=== PATIENT | female | born 1950 | race Caucasian/White ===

== ENCOUNTER 2019-09-26 10:47 | Emergency (ER) | payer MEDICARE, OTHER ==
[2019-09-26 10:55] VITALS: BP 112/85
--- NOTE | 2019-09-26 11:23 | ED Physician Documentation ---
PD HPI UPPER EXT INJURY - Stated complaint Stated Complaint: LT INDEX LAC - Chief complaint Chief Complaint: Ext Problem - History obtained from History obtained from: Patient - History of Present Illness Location: Left, Finger (index) Type of injury: Laceration (cut with knife as she was trying to cut something. Flap lac that bled well initially, then stopped. It started bleeding again this morning when got up and touched finger on something.) Where injury occurred: Home Timing - onset: Last night Timing - details: Abrupt onset, Still present Associated symptoms: No: Weakness, Numbness Similar symptoms before: Has not had sx before Review of Systems Skin: reports: Laceration (s). denies: Abrasion (s) Neurologic: denies: Focal weakness, Numbness, Near syncope PD PAST MEDICAL HISTORY - Past Medical History Past Medical History: No - Past Surgical History HEENT: Tonsil/Adenoidectomy - Allergies Allergies/Adverse Reactions: Allergies Allergy/AdvReac Type Severity Reaction Status Date / Time No Known Drug Allergies Allergy Verified 09/26/19 10:55 - Social History Does the pt smoke?: No Smoking Status: Never smoker Does the pt drink ETOH?: Yes Does the pt have substance abuse?: No - Immunizations Immunizations are current?: Yes PD ED PE NORMAL - Vitals Vital signs reviewed: Yes - General General: Alert and oriented X 3, No acute distress, Well developed/nourished - Derm Derm: Normal color, Warm and dry - Extremities Extremities: Other (left index finger tip with flap lac that is still attached at about 145 degrees of skin, with pink color in center of flap. Looks viable. No FB. Slight bleeding with exam of the lac. It is at edge of nail but does not involve nail/bed at all. ) Results - Vitals Vitals: Vital Signs - 24 hr 09/26/19 10:49 Temperature 36.6 C Heart Rate 74 Respiratory 14 Rate Blood Pressure 112/85 H O2 Saturation 99 Oxygen O2 Source Room air Procedures - Laceration (location) left index finger tip Length in cm: 1.2 Wound type: Flap, Into subcut fat, Clean Neurovascular status: Sensory intact, Motor intact Tendon involvement: Other (not applicable) Anesthesia: Lidocaine 1% with epi Wound Preparation: Irrigated copiously NS, Wound explored, To the base, Wound edges modified. No: FB identified Skin layer closure: Nylon, Running, Size #-0 - enter number (5), Sutures - enter # (6) Other: Patient tolerated well, No complications, Tetanus UTD Complexity: Simple Departure - Departure Disposition: 01 Home, Self Care Clinical Impression: Finger laceration Qualifiers: Encounter type: initial encounter Finger: index finger Damage to nail status: without damage Foreign body presence: without foreign body Laterality: left Qualified Code(s): S61.211A - Laceration without foreign body of left index finger without damage to nail, initial encounter Condition: Stable Record reviewed to determine appropriate education?: Yes Instructions: ED Laceration Hand Follow-Up: Mateus Dee MD [Primary Care Provider] - Comments: It is okay to wash and shower. Clean off the wound twice a day with soap and water, or peroxide and water. Apply some antibiotic ointment to it to keep it moist. Also to watch for signs of infection such as purulence, redness or increasing pain. Return to your primary care or the ER at the specified time for suture removal. Suture removal about 10 days. Tylenol or ibuprofen if needed for pains. Discharge Date/Time: 09/26/19 11:56
== END 2019-09-26 11:56 | disposition home or self-care (01) ==
LOC: ED 10:47
DX: S61.211A Laceration without foreign body of left index finger without damage to nail, initial encounter (principal); W26.0XXA Contact with knife, initial encounter; Y93.89 Activity, other specified; Y92.009 Unspecified place in unspecified non-institutional (private) residence as the place of occurrence of the external cause
CPT/HCPCS: 12001; 99282

== ENCOUNTER 2021-09-10 08:00 | Outpatient (CLI) | payer MEDICARE ==
--- NOTE | 2021-09-10 17:03 | XRAY Report ---
PROCEDURE: Toe(s) LT INDICATIONS: PAIN IN LEFT TOE TECHNIQUE: 3 views of the left fourth toe acquired. COMPARISON: None. FINDINGS: Bones: No displaced fractures or dislocations. There is a curvilinear lucency within the dorsal aspe ct of the base of the fourth middle phalanx which may represent a nondisplaced fracture. There is mil d to moderate degeneration of the interphalangeal joints. No suspicious bony lesions. Soft tissues: No suspicious soft tissue densities. IMPRESSION: 1. No displaced fracture or dislocation. 2. Lucency within the base of the fourth middle phalanx dorsally may represent a nondisplaced fractur e. Reviewed by: Den Quinn MD on 09/10/2021 5:02 PM PST Approved by: Den Quinn MD on 09/10/2021 5:02 PM PST Station ID: [id number]
== END 2021-09-10 23:59 | disposition home or self-care (01) ==
LOC: DI.S 08:00
PROVIDERS: ATTEND Physician Assistant
DX: M79.675 Pain in left toe(s) (principal)
CPT/HCPCS: 73660

== ENCOUNTER 2024-02-15 17:07 | Outpatient (CLI) | payer MEDICARE ==
[2024-02-15 17:19] LABS: BASOPHILS % (AUTO) 0.3 %; EOSINOPHILS # (AUTO) 0.1 10^3/uL (0.0-0.7); EOSINOPHILS % (AUTO) 0.8 %; HCT - HEMATOCRIT 40.7 % (37.0-47.0); HGB - HEMOGLOBIN 13.6 g/dL (12.0-16.0); LYMPHOCYTES # (AUTO) 2.8 10^3/uL (1.5-3.5); LYMPHOCYTES % (AUTO) 39.4 %; MEAN CORPUSCULAR HEMOGLOBIN 31.1 pg (27.0-31.0); MEAN CORPUSCULAR HGB CONC 33.4 g/dL (32.0-36.0); MEAN CORPUSCULAR VOLUME 93.1 fL (81.0-99.0); MEAN PLATELET VOLUME 9.3 fL (7.9-10.8); MONOCYTES # (AUTO) 0.5 10^3/uL (0.0-1.0); MONOCYTES % (AUTO) 7.6 %; NEUTROPHILS # (AUTO) 3.7 10^3/uL (1.5-6.6); NEUTROPHILS % (AUTO) 51.6 %; PLT - PLATELET COUNT 274 10^3/uL (130-450); RED BLOOD COUNT 4.37 10^6/uL (4.20-5.40); RED CELL DISTRIBUTION WIDTH 12.8 % (12.0-15.0); WHITE BLOOD COUNT 7.1 x10^3/uL (4.8-10.8)
[2024-02-15 17:34] LABS: ALBUMIN 4.6 g/dL (3.2-5.5); ALBUMIN/GLOBULIN RATIO 1.5 (1.0-2.2); BILIRUBIN,TOTAL 0.5 mg/dL (0.2-1.0); CALCIUM 9.9 mg/dL (8.5-10.3); CREATININE 0.8 mg/dL (0.6-1.3); POTASSIUM 4.1 mmol/L (3.5-4.5); TOTAL PROTEIN 7.7 g/dL (6.4-8.9)
== END 2024-02-15 17:08 | disposition home or self-care (01) ==
LOC: LAB 17:07
PROVIDERS: ATTEND Registered Nurse
DX: R53.83 Other fatigue (principal); R82.998 Other abnormal findings in urine
CPT/HCPCS: 36415; 80053; 82550; 85025